=== PATIENT | male | born 1980 | race African-American/Black ===

== ENCOUNTER 2019-12-23 04:38 | Emergency (ER) | payer MEDICAID, OTHER ==
[~2019-12-23] VITALS: Ht 165.1 cm; Wt 68.0 kg
[2019-12-23 04:48] VITALS: BP 135/85
== END 2019-12-23 07:41 | disposition home or self-care (01) ==
LOC: ER 04:38
DX: S80.261A Insect bite (nonvenomous), right knee, initial encounter (principal); X58.XXXA Exposure to other specified factors, initial encounter; Y93.89 Activity, other specified; Y92.89 Other specified places as the place of occurrence of the external cause; Y99.8 Other external cause status
CPT/HCPCS: 73560